=== PATIENT | male | born 1955 | race Caucasian/White ===

== ENCOUNTER 2017-11-16 17:29 | Emergency (ER) | payer OTHER, BC ==
[~2017-11-16] VITALS: Ht 175.3 cm; Wt 63.0 kg
[2017-11-16] MEDS ORDERED: IMITREX25 MG PO (19:30)
[2017-11-16] MEDS ORDERED: XENAZINE12.5 MG PO (19:31)
[2017-11-16] MEDS ORDERED: ZANTAC150 M1 PO (19:31)
[2017-11-16 21:36] VITALS: BP 158/76
== END 2017-11-16 21:35 | disposition short-term general hospital (02) | DRG 562 ==
LOC: ED 17:29
DX: S82.832A Other fracture of upper and lower end of left fibula, initial encounter for closed fracture (principal); S72.001A Fracture of unspecified part of neck of right femur, initial encounter for closed fracture; S80.812A Abrasion, left lower leg, initial encounter; S80.811A Abrasion, right lower leg, initial encounter; S40.811A Abrasion of right upper arm, initial encounter; V28.0XXA Motorcycle driver injured in noncollision transport accident in nontraffic accident, initial encounter; Y92.488 Other paved roadways as the place of occurrence of the external cause; Y93.I9 Activity, other involving external motion